=== PATIENT | female | born 1980 | race Caucasian/White ===

== ENCOUNTER 2025-09-08 08:15 | Emergency (ER) | payer BC, SELFPAY ==
--- OUTSIDE RECORDS SUMMARY | 2025-09-08 08:17 | XMS_ITS | Encounter Summary ---
Author Organization [facility] Health Address [address] [place] [address] Care Team Providers Care Banker Mason Name Role Phone JohnnicoleDerrick rodriguez APRN-COURT ABSTRACTOR Primary Care Pr ovider Reason for Visit * Reason Onset Date Comments Menstrual Problem 06/10/2022 Encounter Details Date Type Department Care Team (Late st Contact Info) Description 06/10/2022 Telephone [facility] [address] [place], [place] [phone] Laure Bay MD [address] [place] [address] Menstrual Problem Social History Tobacco Use Types Packs/Day Years Used Date Smoking Tobacco: Never Smokeless Tobacco: Never Alcohol Use Standard Drinks/Week Comments No 0 (1 standard drink = 0.6 oz pur e alcohol) Comments No Sex and Gender Information Value Date Recorded Sex Assigned at Not on file Legal Sex Female 7:34 AM CHIEF INTERNAL AUDITOR Gender Identity Female Sexual Orientation Not on file documented as of this encounter Functional Status * Is person deaf or have serious hearing difficulty? Answer Date of Assessment Author No 09/05/2014 1:00 PM Monica Hirsch RN * Is person blind or have serious difficulty seeing? Answer Date of Assessment Author No 09/05/2014 1:00 PM Moncia Hirsch RN * Does person have serious difficulty walking/climbing stairs? Answer Date of Assessment Author No 09/05/2014 1:00 PM Monica Hirsch RN * Does person have difficulty dressing/bathing? Answer Date of Assessment Author No 09/05/2014 1:00 PM Moniac Hircsh RN * Does person have difficulty doing errands alone? Answer Date of Assessment Author No 09/05/2014 1:00 PM Monica Hirsch RN documented as of this encounter Mental Status * Does person have difficulty concentrating/remembering/making decisions? Answer Entry Date Author No 09/05/2014 1:00 PM Monica Hirsch RN documented in this encounter Miscellaneous Notes * Telephone Encounter - Laure Bay MD - 06/10/2022 11:57 AM CDT agree * Telephone Encounter - Darleen Payton RN - 06/10/2022 9:14 AM CDT RN returned call to pt. Per pt she would like to schedule an appt for irregular cycles. Pt has light cycle every month but concerned with with cramps, soreness before cycle, hairloss, skin is hot. Feels like symptoms are increasing. Pt wants an appt Pt scheduled for 07/02/2022 11:30 AM Laure Bay MD Pt accepts appt * Telephone Encounter - Linda Phillips - 06/10/2022 8:38 AM CDT Pt called in with concerns surrounding her menstrual cycles becoming irregular. Pt also expresses she is having hormonal changes. Pt can be reached at [phone]. documented in this encounter Plan of Treatment Upcoming Encounters Date Type Department Care Team (Late st Contact Info) Description 12/03/2025 10:00 AM CHIEF INTERNAL AUDITOR Office Visit [facility] - [facility] [address], [address] [place] [phone] Prudence Em APRN-KEITH [address] [facility] [place] [phone] 07/31/2026 4:00 PM CDT Office Visit [facility] - WELDING MACHINE OPERATOR PLASMA ARC [address] [place] [address] Vandana Knight MD [address] [facility] [address] [place] [address] documented as of this encounter Visit Diagnoses Not on filedocumented in this encounter Care Teams Banker Mason Relationship Specialty Start Date End Date Derrick Moncada APRN-COURT ABSTRACTOR [address] [place] [address] PCP - General Nurse Practitioner 08/15/25 documented as of this encounter
--- OUTSIDE RECORDS SUMMARY | 2025-09-08 08:17 | XMS_ITS | Clinical Summary ---
Author Organization [facility] Address [address] [place] [phone] Phone Care Team Providers Care Director Part Name Role Phone Ariella Moncada NP Primary Care Provide r Allergies Active Allergy Reactions Criticality Noted Date Comments Sulfamethoxazole-Trimethoprim Medications HYDROcodone-acet aminophen (NORCO) 5-325 mg per tabletIndication s:Pain Take 1 tablet by mouth every 6 (six) hours as needed for pain 12 tablet 06/03/2025 Active cyclobenzaprine (FLEXERIL) 10 mg tablet Take 1 tablet (10 mg total) by mouth every 8 (eight) hours as needed for muscle spasms 12 tablet 06/03/2025 Active Active Problems Problem Noted Date Diagnosed Date Chronic interstitial cystitis 01/29/2011 Surgical History Surgery Date Site/Laterality Comments APPENDECTOMY Appendectomy - (Added by TW Conv) Medical History Medical History Date Comments Scoliosis Scoliosis - (Add ed by TW Conv) Social History Tobacco Use Types Packs/Day Years Used Date Smoking Tobacco: Never Personal Safety Answer Date Recorded Have you ever been in or are you currently in a harmful physical or emotional relationship or is someone making you feel afraid or unsafe? Denies 06/03/2025 Comments Unknown Sex and Gender Information Value Date Recorded Sex Assigned at Not on file Legal Sex Female 9:18 AM TRIM OPERATOR Gender Identity Not on file Sexual Orientation Not on file Last Filed Vital Signs Vital Sign Reading Time Taken Comments Blood Pressure 102/54 06/03/2025 4:40 PM CDT Pulse 46 06/03/2025 4:40 PM CDT Temperature 36.4 C (97.6 F) 06/03/2025 11:41 AM CDT Respiratory Rate 24 06/03/2025 11:41 AM CDT Oxygen Saturation 100% 06/03/2025 4:40 PM CDT Inhaled Oxygen Concentration - - Weight 50.8 kg (112 lb) 06/03/2025 11:41 AM CDT Height 162.6 cm (5' 4) 06/03/2025 11:41 AM CDT Body Mass Index 19.22 06/03/2025 11:41 AM CDT Plan of Treatment Health Maintenance Due Date Last Done Comments Cervical Cancer Screening 1978 Colon Cancer Screening-Colonoscopy 1978 Depression Screening 1978 Hepatitis C Screening 1978 Hepatitis B Screening 1996 Regular Well Visit/Exam 18-64 1996 Breast Cancer Screening-Mammogram 03/31/2024 03/31/2023, 03/31/2023 Covid-19 Vaccine ( season) 2025 09/18/2021, 12/17/2020, 11/30/2020 Influenza Vaccine (#1) 2025 , 08/03/2023, 06/24/2022, Additional history exists DTaP/Tdap/Td Vaccine (2 - Td or Tdap) 08/03/2034 08/03/2024, 07/04/2011 Pneumococcal vaccine <65 Aged Out No longer eligible based on patient's age to complete this topic Insurance [employer] CHOICE ANTHEM ACCESS CHOICE Care Teams Director Part Relationship Specialty Start Date End Date Ariella Moncada NP [address] [place] [address] PCP - General Emergency Medicine 06/03/25
--- OUTSIDE RECORDS SUMMARY | 2025-09-08 08:17 | XMS_ITS | Clinical Summary ---
Author Organization [facility] Address [address] [address] Phone Care Team Providers Care Director Name Role Phone David Yanes MD Unavailable [phone] Sanna Moncada APRN, PATIENT ACCESS COORDINATOR Primary Care P rovider Allergies Active Allergy Reactions Criticality Noted Date Comments Sulfamethoxazole-Trim ethoprim Unknown Citric Acid Unknown 09/18/2019 Per pt can not tolerate citric acid or acidic foods Lidocaine Other (see Comments) 09/05/2014 Burning when It Was Instilled Into Her bladder Medications Isopropyl Alcohol (Alcohol Wipes) 70 % MiscIndications :Vitamin B12 deficiency Use with b12 20 Each 4 Active Zolmitriptan 5 MG TABLET DISPERSIBLEIndi cations:Migrain e without status migrainosus, not intractable, unspecified migraine type PLACE 1 TABLET ON THE TONGUE NEEDED FOR MIGRAINE 18 Tablet 5 5 Active Trulance 3 MG Tablet Take 1 Tablet by mouth nightly. 90 Tablet 1 5 Active testosterone (TESTOPEL) 25 MG PELLET Testosterone Active Syringe/Needle, Disp, (SYRINGE 3CC/25GX1) 25G X 1 3 ML MiscIndications :Vitamin B12 deficiency Use with B12 16 Each 5 Active cyanocobalamin (VITAMIN B-12) 1000 MCG/ML SolutionIndicat ions:Vitamin B12 deficiency 1 mL once a week for 42 days, THEN 1 mL every 30 days for 322 days. 16 mL 5 08/02/20 26 Active Active Problems Problem Noted Date Diagnosed Date Irritable bowel syndrome with constipation 08/25 Migraine without status migrainosus, not intract able 10/19/2017 Chronic interstitial cystitis Scoliosis B12 deficiency Resolved Problems Problem Noted Date Diagnosed Date Resolved Date Nausea in adult 08/24/2021 06/24/2022 Benign paroxysmal positional vertigo 08/24/2021 06/24/2022 COVID-19 virus infection 07/07/2021 Hypotension 08/02/2018 06/24/2022 Dizziness 06/15/2017 08/03/2025 Kidney stones 06/24/2022 GERD (gastroesophageal reflux disease) 10/19/2017 Mental retardation 6 Overview (08/16/2015): Mild to Moderate, Echo 11/15 MR (congenital mitral regurgitation) 10/12/2023 Encounters Date Type Department Care Team Description 08/20/2025 Patient Outreach [facility] [place] [address] [place] [address] Sanna Moncada APRN, PATIENT ACCESS COORDINATOR 08/06/2025 Telephone [facility] [address] [place] [phone] Sanna Moncada APRN, PATIENT ACCESS COORDINATOR Form Completion 08/04/2025 [facility]ation [facility] [address] [place] [phone] Sanna Moncada APRN, PATIENT ACCESS COORDINATOR 08/03/2025 8:00 AM CDT [facility] [address] [place] [phone] Sanna Moncada APRN, PATIENT ACCESS COORDINATOR Preventative health care (Adult) (Primary Dx); Vitamin B12 deficiency; Encounter for immunization; Chronic interstitial cystitis; Acute pain of right knee; Pityriasis rosea Discharge Disposition: Discharged to home or Selfcare 08/01/2025 Travel 07/16/2025 Telephone [facility] [address] [place] [phone] Sanna Moncada APRN, KEITH Labs Only 07/09/2025 Results Follow-Up [facility] [address] [place] [address] Maria A Bowers APRN, KEITH POCT UA AUTOMATED W/O MICRO, CULTURE, URINE 07/06/2025 3:50 PM CDT Urgent Care Visit [facility] [address] [place] [phone] Maria A Bowers APRN, KEITH Dysuria (Primary Dx) Discharge Disposition: Discharged to home or Selfcare 07/06/2025 Travel 06/23/2025 Results Follow-Up [facility] [address] [place] [phone] Mesha Fontenot APRN, KEITH POCT UA AUTOMATED W/O MICRO, CULTURE, URINE 06/21/2025 8:05 AM CDT Urgent Care Visit [facility] [address] [place] [phone] Maria A Bowers APRN, CNP Dysuria (Primary Dx) Discharge Disposition: Discharged to home or Selfcare 06/21/2025 Travel from Last 3 Months Immunizations Immunization Administration Dates Next Due Covid-19, Mrna, Lnp-s, Pf, 3 0 Mcg/0.3 Ml Dose ([employer]) 12/17/2020,11/30/2020 Influenza Vaccine, Quadrivalent, PF 07/06,06/24/2022,09/09/2021,2019,09/07/2019,07/20/2018 Influenza,Split Virus,Trivalent,Injectable,PF 08/03/2025,08/03/2024 TB Skin Test 11/28/2019 TD VACCINE 07/04/2011 TDAP Vaccine 08/03/2024 Td (Adult) 07/04/2011 Family History Medical History Relation Name Comments Diabetes Father Cancer Maternal Grandfather pancrea tic Migraines Mother Cancer Paternal Grandmother breast Relation Name Status Comments Father Alive Maternal Grandfather Mother Alive Paternal Grandmother Social History Tobacco Use Types Packs/Day Years Used Date Smoking Tobacco: Never Smokeless Tobacco: Never Tobacco Cessation:Counseling Given: No Alcohol Use Standard Drinks/Week Comments Never 0 (1 standard drink = 0.6 oz pur e alcohol) PHQ-2 Answer Date Recorded Total Score - Questions 1-9 0 07/06 Social Connection and Isolation Panel Answer Date Recorded In a typical week, how many times do you talk on the phone with family, friends, or neighbors? More than three times a week 08/01/2025 How often do you get togethe r with friends or relatives? Twice a week 08/01/2025 How often do you attend chur ch or episcopal services? More than 4 times per year 08/01/2025 Do you belong to any clubs o r organizations such as scientology groups, unions, fraternal or athletic groups, or school groups? Yes 08/01/2025 How often do you attend meet ings of the clubs or organizations you belong to? More than 4 times per year 08/01/2025 Are you , , di vorced, , never , or living with a partner? 08/01/2025 AUDIT-C Answer Date Recorded Q1: How often do you have a drink containing alcohol? Never 08/01/2025 Q2: How many drinks containi ng alcohol do you have on a typical day when you are drinking? Patient does not drink Q3: How often do you have si x or more drinks on one occasion? Never 08/01/2025 Overall Financial Resource Strain (CARDIA) Answe r Date Recorded How hard is it for you to pa y for the very basics like food, housing, medical care, and heating? Not hard at all 08/01/2025 [facility] - Occupational Stress Questionnaire Answer Date Recorded Do you feel stress - tense, restless, nervous, or anxious, or unable to sleep at night because your mind is troubled all the time - these days? To some extent 08/01/2025 Exercise Vital Sign Answer Date Recorde d On average, how many days pe r week do you engage in moderate to strenuous exercise (like a brisk walk)? 6 days 08/01/2025 On average, how many minutes do you engage in exercise at this level? 40 min 08/01/2025 Hunger Vital Sign Answer Date Recorded Within the past 12 months, y ou worried that your food would run out before you got the money to buy more. Never true 08/01/20 25 Within the past 12 months, t he food you bought just didn't last and you didn't have money to get more. Never true 08/01/2025 PRAPARE - Transportation Answer Date Re corded In the past 12 months, has l ack of transportation kept you from medical appointments or from getting medications? No 07/05 In the past 12 months, has l ack of transportation kept you from meetings, work, or from getting things needed for daily living? No 08/01/2025 Housing Stability Vital Sign Answer Nixon e Recorded In the last 12 months, was t here a time when you were not able to pay the mortgage or rent on time? No 08/01/2025 In the past 12 months, how m any times have you moved where you were living? 0 08/01/2025 At any time in the past 12 m [facility], were you homeless or living in a penitentiary (including now)? No 08/01/2025 [facility] Utilities Answer Date Recorded In the past 12 months has th e [employer], gas, oil, or water [employer] threatened to shut off services in your home? No 08/01/2025 Education Answer Date Recorded What is the highest level of school you have completed or the highest degree you have received? Bachelor's degree (e.g., BA, AB, BS) 08/21/2022 Sexually Active Control Partners Comments Yes Oral Contraceptive Male Comments No Sex and Gender Information Value Date Recorded Sex Assigned at Not on file Legal Sex Female 11:41 PM CDT Gender Identity Not on file Sexual Orientation Not on file Last Filed Vital Signs Vital Sign Reading Time Taken Comments Blood Pressure 98/64 08/03/2025 8:12 AM CDT Pulse 66 08/03/2025 8:12 AM CDT Temperature 36.3 C (97.4 F) 08/03/2025 8:12 AM CDT Respiratory Rate 18 08/03/2025 8:12 AM CDT Oxygen Saturation 98% 08/03/2025 8:12 AM CDT Inhaled Oxygen Concentration - - Weight 51.7 kg (114 lb) 08/03/2025 8:12 AM CDT Height 160 cm (5' 3) 08/03/2025 8:12 AM CDT Body Mass Index 20.19 08/03/2025 8:12 AM CDT Plan of Treatment Upcoming Encounters Date Type Department Care Team (Late st Contact Info) Description 08/09/2026 8:00 AM INFORMATION SYSTEMS SECURITY DEVELOPER Office Visit [facility] - [address] [place] [phone] Sanna Moncada APRN, PATIENT ACCESS COORDINATOR [address] [place] [address] Health Maintenance Due Date Last Done Comments Cologuard 2023 Immunochemical Fecal Occult Blood 2023 Mammogram 04/21/2024 04/21/2023, 03/05, 03/31/2023 SARS-COV-2 Immunization ( season) 2025 09/18/2021, 12/17/2020, 11/30/2020 HPV/Cotest 06/28/2027 06/28/2022 Cervical Cancer Screening (CCS) 07/26/2030 Pap Smear 07/26/2030 07/26/2025, 10/04, 10/08/2016 Colonoscopy 09/06/2033 09/06/2023, 09/06/2023 Colorectal Cancer Screening 09/06/2033 Td Immunization Every 10 Years (Adults With 1 Tdap) 08/03/2034 08/03/2024, 07/04/2011, 07/04/2011 Respiratory Syncytial Virus (RSV) Immunization (Adult) (1 - 1-dose 75+ series) 2053 Discussion re Starting/Frequency of Mammograms Completed 04/21/2023, 03/31/2023, 11/24/2022 Hepatitis C Virus (HCV) Screening Completed 07/27/2024 TdaP Immunization Discontinued 08/03/2024 Influenza Immunization Completed , 08/03/2024, 08/03/2023, Additional history exists Hepatitis B Immunization Discontinued Human Papillomavirus (HPV) Immunization Aged Out No longer eligible based on patient's age to complete this topic Meningococcal Immunization (ACWY) Aged Out No longer eligible based on patient's age to complete this topic Pneumococcal Immunization Combined Aged Out No longer eligible based on patient's age to complete this topic Rotavirus Immunization Aged Out No lo nger eligible based on patient's age to complete this topic Procedures Procedure Name Priority Date/Time Associated Diagnosis Comments EXTERNAL PHYSICAL THERAPY REFERRAL Less Than 1 week 08/20/2025 12:00 AM INFORMATION SYSTEMS SECURITY DEVELOPER LIPID PANEL 07/19/2025 12:00 AM CDT FOLIC ACID (FOLATE) 07/19/2025 1 2:00 AM CDT FOLIC ACID (FOLATE) 07/19/2025 1 2:00 AM CDT VITAMIN B12 07/19/2025 12:00 AM CDT COMPLETE BLOOD COUNT (CBC) WITH DIFF 07/19/2025 12:00 AM CDT THYROID STIMULATING HORMONE (TSH) 07/19/2025 12:00 AM CDT CMP (COMPREHENSIVE METABOLIC PANEL) 07/19/2025 12:00 AM CDT CULTURE, URINE Today 07/06/2025 5:34 PM CDT Dysuria POCT UA AUTOMATED W/O MICRO Routine 07/06/2025 3:52 PM CDT Dysuria CULTURE, URINE Routine 06/21/2025 8:23 AM CDT Dysuria POCT UA AUTOMATED W/O MICRO Routine 06/21/2025 8:06 AM CDT Dysuria HEPATITIS C ANTIBODY Routine 07/27/2024 8:07 AM CDT Preventative health care (Adult) GI IMAGING - COLONOSCOPY Routine 09/06/2023 10:00 AM INFORMATION SYSTEMS SECURITY DEVELOPER PATHOLOGY CYTOLOGY [employer] Routine 10/08/2016 from Last 3 Months or Most Recently Relevant to Health Maintenance Results * EXTERNAL PHYSICAL THERAPY REFERRAL (08/20/2025 12:00 AM INFORMATION SYSTEMS SECURITY DEVELOPER) 08/20/2025 Sanna Moncada APRN, CNP OUTPT REFERRALS EXT/INT Final Result Performing Organization Address [place]/[facility] de Phone Number SCAN * VITAMIN B12 (07/19/2025 12:00 AM CDT) 07/19/2025 us Provider Scan CHEMISTRY ORDERABLES Final Resul t Performing Organization Address [facility] de Phone Number SCAN * THYROID STIMULATING HORMONE (TSH) (07/19/2025 12:00 AM CDT) 07/19/2025 Provider Scan CHEMISTRY ORDERABLES Final Resul t Performing Organization Address [facility] de Phone Number SCAN * LIPID PANEL (07/19/2025 12:00 AM CDT) CHOLESTEROL 157 SCAN HDL CHOLESTEROL 62 SCAN LDL 83 SCAN 07/19/2025 us Provider Scan CHEMISTRY ORDERABLES Final Resul t Performing Organization Address [facility] de Phone Number SCAN * FOLIC ACID (FOLATE) (07/19/2025 12:00 AM CDT) Only the most recent of2 resultswithin the time period is included. 07/19/2025 us Provider Scan CHEMISTRY ORDERABLES Final Resul t Performing Organization Address [facility] de Phone Number SCAN * CMP (COMPREHENSIVE METABOLIC PANEL) (07/19/2025 12:00 AM CDT) 07/19/2025 us Provider Scan CHEMISTRY ORDERABLES Final Resul t Performing Organization Address [place] Co de Phone Number SCAN * COMPLETE BLOOD COUNT (CBC) WITH DIFF (07/19/2025 12:00 AM CDT) 07/19/2025 us Provider Scan HEMATOLOGY ORDERABLES Final Resu lt Performing Organization Address [facility] de Phone Number SCAN * CULTURE, URINE (07/06/2025 5:34 PM CDT) Only the most recent of2 resultswithin the time period is included. CULTURE RESULTS COAGULASE-NEGATIVE STAPHYLOCOCCUS, NOT STAPHYLOCOCCUS SAPROPHYTICUS 07/08/2025 6:12 PM CDT [facility] Comment:SENSITIVITY NOT PERF ORMED CULTURE RESULTS Also mixed growth of distal urethral contaminants 07/08/2025 6:12 PM CDT [facility] Culture URINE SPECIMEN OBTAINED BY CLEAN CATCH PROCEDURE / Unknown Non-Phlebotomy Collection / Unknown 07/06/2025 5:34 PM CDT 07/06/2025 5:34 PM CDT Maria A Bowers BUMPER STRAIGHTENER, PATIENT ACCESS COORDINATOR MICROBIOLOGY - GEN ERAL ORDERABLES Final Result Performing Organization Address [facility] Co de Phone Number [facility] [address] [place] [address], [place] * POCT UA AUTOMATED W/O MICRO (07/06/2025 3:52 PM CDT) Only the most recent of2 resultswithin the time period is included. POC UA SPECIFIC GRAVITY 1.015 URINE PH 6.0 5.0 - 9.0 POC URINE LEUKOCYTES Negative Negative Escobar/uL POC URINE NITRITE Negative Negative POC URINE PROTEIN Negative Negative mg/dL POC URINE GLUCOSE Negative Negative, Norm mg/dL POC URINE KETONE Negative Negative mg/dL POC URINE UROBILINOGEN Norm Norm, 0.2 E.U./dL (mg/dL), 1 E.U./dL (mg/dL) POC URINE BILIRUBIN Negative Negative mg/dL POC URINE BLOOD INSTRUMENT Negative Negative Yosi/uL POC URINE COLOR Yellow POC URINE CLARITY Clear Urine 07/06/2025 3:52 PM CDT Maria A Bowers APRN, CNP POINT OF CARE TEST ING (MANUAL) Final Result * HEPATITIS C ANTIBODY (07/27/2024 8:07 AM CDT) hepatitis C antibody 0.08 <1 S/CO 07/27/2024 10:03 PM CDT [facility] Comment: Signal/Cutoff ratio < 0.79 is Nondetected Signal/Cutoff ratio 0.80-0.99 is Grayzone Signal/Cutoff ratio > 0.99 is Detected Supplemental assays are recommended if signal/cutoff ratio is >/=1.00. Signal/cutoff ratio result >/= 5.00 is 97% predictive of positivity for recombinant immunoblot assay (RIBA) and will be reported to the [place] Department of Public Health as required. Blood Venipuncture / Unknown 07/27/2024 8:07 AM CDT 07/27/2024 8:07 AM CDT Sanna Moncada APRN, CNP CHEMISTRY ORDER BERNY Final Result [facility] [address] [place] [address], * GI IMAGING - COLONOSCOPY (09/06/2023 10:00 AM INFORMATION SYSTEMS SECURITY DEVELOPER) Shane Steele MD IMG DIAGNOSTIC ORDERABLES Final Result * PATHOLOGY CYTOLOGY R[employer] (10/08/2016) Specimen of unknown material (specimen) Apoorva Carter MD PATHOLOGY/CYTOLOGY ORD ERABLES Final Result from Last 3 Months or Most Recently Relevant to Health Maintenance Insurance [facility] Care Teams Director Relationship Specialty Start Date End Date Sanna Moncada, BUMPER STRAIGHTENER, PATIENT ACCESS COORDINATOR [address] [place] [address] PCP - General Advanced Practice Nurse 11/24/22 David Yanes MD [address] [place] [address] Medical Front Desk Specialist Obstetrics & Gynecology 05/07/20
--- OUTSIDE RECORDS SUMMARY | 2025-09-08 08:17 | XMS_ITS | Encounter Summary ---
Author Organization [facility] Address [address] [place] [address] Phone Care Team Providers Care Traffic Division Commanding Officer Name Role Phone Irlanda Maharaj MD Primary Care Provider [phone] David Yanes MD Unavailable Sanna Moncada APRN, FINDING FASTENER Primary Care P rovider Reason for Visit * Reason Comments Medication Refill Encounter Details Date Type Department Care Team (Late st Contact Info) Description 09/01/2022 Refill [facility] - Primary Care - [place] [address] [place] [address] Irlanda Maharaj MD [address] [place] [address] Medication Refill Social History Tobacco Use Types Packs/Day Years Used Date Smoking Tobacco: Never Smokeless Tobacco: Never Alcohol Use Standard Drinks/Week Comments No 0 (1 standard drink = 0.6 oz pur e alcohol) PHQ-2 Answer Date Recorded Total Score - Questions 1-9 0 02/02 Education Answer Date Recorded What is the highest level of school you have completed or the highest degree you have received? Bachelor's degree (e.g., BA, AB, BS) 08/21/2022 Sexually Active Control Partners Comments Yes Oral Contraceptive Comments No Sex and Gender Information Value Date Recorded Sex Assigned at Not on file Legal Sex Female 11:41 PM CDT Gender Identity Not on file Sexual Orientation Not on file COVID-19 Exposure Response Date Recorded In the last 10 days, have yo u been in contact with someone who was confirmed or suspected to have Coronavirus/COVID-19? No / Unsure 08/23/2022 8:19 AM ADMINISTRATIVE SALES ASSISTANT documented as of this encounter Miscellaneous Notes * Telephone Encounter - Arcelia Sykes RN - 09/01/2022 9:43 AM CST Medication failed the protocol, provider to review and approve the medication order if appropriate. Requested Prescriptions Pending Prescriptions Disp Refills cyanocobalamin 1000 MCG Tablet [Pharmacy Med Name: VITAMIN B-12 1000MCG TABLETS] 90 Tablet 1 Sig: TAKE 1 TABLET BY MOUTH DAILY Not Delegated - Off Protocol Failed - 09/01/2022 3:11 AM Failed - This refill cannot be delegated Passed - Visit with relevant provider in past 12 months or upcoming 90 days Recent Visits Date Type Provider Dept 08/21/22 Office Visit Sanna Moncada APRN, KE[facility] 06/24/22 Office Visit Sanna Moncada APRN, CNP [facility] 03/16/22 Office Visit Irlanda Maharaj MD [facility] Showing recent visits within past 365 days and meeting all other requirements Future Appointments No visits were found meeting these conditions. Showing future appointments within next 90 days and meeting all other requirements NISTRATIVE SALES ASSISTANT documented in this encounter Plan of Treatment Upcoming Encounters Date Type Department Care Team (Late st Contact Info) Description 08/09/2026 8:00 AM ADMINISTRATIVE SALES ASSISTANT Office Visit [facility] - Primary Care - [place] [address] [place] [id number] Sanna Moncada APRN, FINDING FASTENER [address] [place] [address] documented as of this encounter Visit Diagnoses Not on filedocumented in this encounter Additional Health Concerns Infection Onset Date Last Indicated Resolved Time COVID - 19 06/26/2023 06/26/2023 06/26/2023 8:26 AM CDT COVID - 19 11/20/2023 11/20/2023 11/30/2023 12:1 6 AM ADMINISTRATIVE SALES ASSISTANT Respiratory Rule-Out 11/20/2023 11/20/2023 024 8:43 AM ADMINISTRATIVE SALES ASSISTANT Assessment Noted Time PHQ-9 Depression Total Score: 0 02/28/20 21 8:00 AM CDT documented as of this encounter Care Teams Traffic Division Commanding Officer Relationship Specialty Start Date End Date Irlanda Maharaj MD PCP - General Family Medicine 08/15/15 11/23/22 Sanna Moncada, MEDIA LAW FACULTY MEMBER, FINDING FASTENER [address] [place] [address] PCP - General Advanced Practice Nurse 11/24/22 David Yanes MD [address] [place] [address] Project Admin Obstetrics & Gynecology 05/07/20 documented as of this encounter
--- OUTSIDE RECORDS SUMMARY | 2025-09-08 08:17 | XMS_ITS | Encounter Summary ---
Author Organization [facility] Address [address] [place] [address] Care Team Providers Care Zigzag Appliquer Name Role Phone Irlanda Maharaj MD Unavailable [phone] [facility] Primary Care Pr ovider Reason for Visit * Reason Onset Date Comments UTI 02/10/2018 Encounter Details Date Type Department Care Team (Late st Contact Info) Description 02/10/2018 Telephone [facility] [address] [place], [place] [id number] David Yanes MD [address] [place], [place] [id number] UTI Social History Tobacco Use Types Packs/Day Years Used Date Smoking Tobacco: Never Smokeless Tobacco: Never Alcohol Use Standard Drinks/Week Comments No 0 (1 standard drink = 0.6 oz pur e alcohol) Comments No Sex and Gender Information Value Date Recorded Sex Assigned at Not on file Legal Sex Female 7:34 AM MANAGER EMERGENCY DEPARTMENT Gender Identity Female Sexual Orientation Not on file documented as of this encounter Functional Status * Is person deaf or have serious hearing difficulty? Answer Date of Assessment Author No 09/05/2014 1:00 PM Monica Hirsch RN * Is person blind or have serious difficulty seeing? Answer Date of Assessment Author No 09/05/2014 1:00 PM Monica Hirshc RN * Does person have serious difficulty walking/climbing stairs? Answer Date of Assessment Author No 09/05/2014 1:00 PM Monica Hirsch RN * Does person have difficulty dressing/bathing? Answer Date of Assessment Author No 09/05/2014 1:00 PM Monica Hirsch RN * Does person have difficulty doing errands alone? Answer Date of Assessment Author No 09/05/2014 1:00 PM Monica Hirsch RN documented as of this encounter Mental Status * Does person have difficulty concentrating/remembering/making decisions? Answer Entry Date Author No 09/05/2014 1:00 PM Monica Hirsch RN documented in this encounter Miscellaneous Notes * Telephone Encounter - Adams Zelaya RN - 02/14/2018 9:52 AM CDT Ur Cx results: not a UTI. LM on a re: above msg. CB office if still having problems. * Telephone Encounter - David Yanes MD - 02/10/2018 3:13 PM CDT Would recommend waiting for urine culture. * Telephone Encounter - Adams Zelaya RN - 02/10/2018 12:30 PM CDT Sanna used home Test strip - leukocytes and nitrates turned a color. 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 Admits to eating Blueberries this am and wonders if she caused her IC to flare vs UTI. C/o : new onset burning when she voids - different burning than she normally gets. Twisting or clamping Pain at the urethra. Denies urgency. PLAN: will go to [facility] today and call medical exhange on Wednesday if symptoms the same or worse. Took AZO an hour ago so hasn't gotten much if any relief yet. Will continue to take 3x/ day. QUESTION: SHOULD SHE come sooner for instillations? * Telephone Encounter - BenedictLianna - 02/10/2018 9:59 AM CDT Pt called stating that she took a home test for an UTI. She stated that she is requesting an urine culture, and can not wait til Wednesday because she has a large event this . Call back# [phone] documented in this encounter Plan of Treatment Upcoming Encounters Date Type Department Care Team (Late st Contact Info) Description 12/03/2025 10:00 AM MANAGER EMERGENCY DEPARTMENT Office Visit [facility] - Surgery [address], [facility] [address] [place] [phone] Prudence Em, DIRECT MARKETING MANAGER-NATURAL RESOURCES TECHNICIAN [address] [facility] [address] [place] [phone] 07/31/2026 4:00 PM CDT Office Visit [facility] - OIL INSPECTOR [address] [place] [address] [address] [place] [address] Vandana Knight MD [address] [facility] [address] [place] [address] documented as of this encounter Procedures Procedure Name Priority Date/Time Associated Diagnosis Comments CULTURE URINE Routine 02/10/2018 2:03 PM CDT Recurrent UTI documented in this encounter Results * CULTURE URINE (02/10/2018 2:03 PM CDT) Culture [facility] Comment: CULTURE, URINE, ROUTINE MICRO NUMBER: [id number] TEST STATUS: FINAL SPECIMEN SOURCE: URINE, CLEAN CATCH SPECIMEN QUALITY: ADEQUATE RESULT: Multiple organisms present, each less than 10,000 CFU/mL. These organisms, commonly found on external and internal genitalia, are considered to be colonizers. No further testing performed. Test Performed at: [facility] [address] [address] KAYY BALLARD MD Urine URINE SPECIMEN OBTAINED BY CLEAN CATCH PROCEDURE / Unknown 02/10/2018 2:03 PM CDT 02/10/2018 2:04 PM CDT David Yanes MD LAB - MICROBIOLOGY ORDERABLES F inal Result [address] [address] documented in this encounter Visit Diagnoses Diagnosis Recurrent UTI- Primary Urinary tract infection, site not specified documented in this encounter Care Teams Zigzag Appliquer Relationship Specialty Start Date End Date Irlanda Maharaj MD [address] [place] [address] PCP - Attributed[facility] [place] 10/04/20 02/17/22 Sanna Moncada APRN-NATURAL RESOURCES TECHNICIAN [address] [place] [address] PCP - General Nurse Practitioner 08/15/25 documented as of this encounter
--- OUTSIDE RECORDS SUMMARY | 2025-09-08 08:17 | XMS_ITS | Clinical Summary ---
Author Organization [facility] Address [address] [place] [address] Care Team Providers Care Pharmaceutical Plant Operator Name Role Phone Derrick Moncada APRN-HEEL CASER Primary Care Pr ovider Source Comments [facility],non-owned Affiliates and Associated Physician Practices is amultiple site organization consisting of ambulatory clinics and hospital sitesin [place], [place], [place] and [place]. This disclosure is being madepursuant to the Care Everywhere program and may not contain all information available regarding this patient. Last updated 18.[facility] Allergies Active Allergy Reactions Criticality Noted Date Comments Sulfamethoxazole W-Trimethoprim Urticaria High 09/03/2014 Hives Lidocaine Other Medium 09/05/2014 Irritant When It Was Instilled Into Her bladder Skin Adhesives Rash Medium 03/05/2023 Rash with bandaid Medications * Be aware that medications may not be up to date on this document. Alwaysverify current medications with the patient. ZOLMitriptan (ZOMIG) 5 MG tablet Take 1 (one) tablet by mouth daily as needed - may repeat one time for Migraine Maximum daily dose: 10 mg/24 hours TAKES /5 TAB Active heparin 1000 UNIT/ML 1,000 Units in 0.9% NaCl 0.9 % 1,000 mLIndications:In terstitial cystitis 5 mL by Irrigation route intra-OP multiple 1 Each 8 Active phenazopyridine (Pyridium) 100 MG tabletIndication s:Interstitial cystitis,Acute cystitis without hematuria Take 1 (one) tablet by mouth every 8 hours as needed for Pain 60 tablet 2 3 Active Additional Information Patient not taking.Reported on 07/26/2025 cyanocobalamin (Vitamin B-12) injection Inject 1,000 (one thousand) mcg into muscle every 30 days 4 Active Trulance 3 MG tablet Take 1 (one) tablet by mouth at bedtime 5 Active linaCLOtide (Linzess) 72 MCG capsuleIndicatio ns:Chronic Idiopathic Constipation Take 1 (one) capsule by mouth daily before breakfast Take on an empty stomach at least 30 minutes prior to first meal of the day. Reasons: Chronic Constipation of Unknown Cause 30 capsule 3 5 Active HYDROcodone-acet aminophen ([place]) 5-325 MG tabletIndication s:Acute Abdominal Pain Take 1 (one) tablet by mouth every 4 hours as needed for Pain Reasons: Acute Pain in the Abdominal Region 12 tablet 5 Active plecanatide (Trulance) 3 MG tablet Take 1 (one) tablet by mouth once daily 30 tablet 3 5 Active Additional Information Patient not taking.Reported on 07/26/2025 meloxicam (Mobic) 15 MG tablet 1 tablet Orally once a day for 30 days 5 Active cyclobenzaprine (Flexeril) 10 MG tablet Take 1 (one) tablet by mouth 5 Active terbinafine (LamISIL) 250 MG tablet Take 1 (one) tablet by mouth once daily 1 tablet Orally once daily for 7 days in a row, then stop. 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 Chronic interstitial cystitis 01/29/2011 Abnormal bleeding in menstrual cycle Encounters Date Type Department Care Team Description 08/28/2025 Telephone [facility] Breast [facility] [address] [place] [address] Chery Ramon RN High Risk Follow Up 08/15/2025 7:41 AM FINANCIAL DIRECTOR - 08/15/2025 11:59 PM FINANCIAL DIRECTOR Hospital Encounter [facility] - Outside Imaging Discharge Disposition: Home or Self Care 08/15/2025 7:17 AM FINANCIAL DIRECTOR - 08/15/2025 7:40 AM FINANCIAL DIRECTOR Hospital Encounter [facility] [address] [place] [address] Vandana Knight MD Discharge Disposition: Home or Self Care 08/15/2025 Telephone [facility] - DUST CONTROL ENGINEER [address] [place] [phone] Vandana Knight MD Results 08/13/2025 [facility] DUST CONTROL ENGINEER [address] [place] [phone] David Yanes MD Question; Refill Request 07/26/2025 4:00 PM CDT [facility] DUST CONTROL ENGINEER [address] [place] [address] Vandana Knight MD Well woman exam with routine gynecological exam (Primary Dx) 07/26/2025 Travel 07/16/2025 Orders Only [facility] - DUST CONTROL ENGINEER [address] [place] [phone] David Yanes MD Acute cystitis without hematuria 07/03/2025 Travel from Last 3 Months Immunizations Immunization Administration Dates Next Due Covid Pfizer primary monoval ent 12+ yr 0.3mL Purple cap 12/17/2020,11/30/2020 INFLUENZA VACCINE, QUADR. (F LUZONE; FLULAVAL; FLUARIX; AFLURIA QUADRIVALENT; 6MO+), 0.5 ML (IIV4) 08/14/2020,09/07/2019,07/20/2018 TD (AGE 7-ADULT) 07/04/2011 Family History Medical History Relation Name Comments None Known Brother Brain Tumor Father no growth and n o treatment None Known Maternal Aunt 1 None Known Maternal Grandfather None Known Maternal Grandmother None Known Maternal Uncle None Known Mother None Known Paternal Aunt 1 None Known Paternal Grandfather Cancer - Breast Paternal Grandmother None Known Sister 1 Relation Name Status Comments Brother Father Maternal Aunt 1 Maternal Aunt 2 Alive Maternal Grandfather Maternal Grandmother Maternal Uncle Mother Other autoimmune Alive Paternal Aunt 1 Paternal Aunt 2 Alive Paternal Grandfather Paternal Grandmother Sister 1 Sister 2 Alive Social History Tobacco Use Types Packs/Day Years Used Date Smoking Tobacco: Never Passive Smoke Exposure: Never Smokeless Tobacco: Never Tobacco Cessation:Counseling Given: No Alcohol Use Standard Drinks/Week Comments No 0 (1 standard drink = 0.6 oz pur e alcohol) PHQ-2 Answer Date Recorded Patient Health Questionnaire-2 Score 0 04/09/2025 Comments No Sex and Gender Information Value Date Recorded Sex Assigned at Not on file Legal Sex Female 7:34 AM FINANCIAL DIRECTOR Gender Identity Female Sexual Orientation Not on file Last Filed Vital Signs Vital Sign Reading Time Taken Comments Blood Pressure 110/70 07/26/2025 4:13 PM CDT Pulse 59 01/05/2025 2:01 PM CDT Temperature 36.6 C (97.9 F) 01/05/2025 1:39 PM CDT Respiratory Rate 12 01/05/2025 2:01 PM CDT Oxygen Saturation 100% 01/05/2025 2:01 PM CDT Inhaled Oxygen Concentration - - Weight 51.7 kg (114 lb) 08/15/2025 7:37 AM FINANCIAL DIRECTOR Height 162.6 cm (5' 4) 08/15/2025 7:37 AM FINANCIAL DIRECTOR Body Mass Index 19.57 08/15/2025 7:37 AM FINANCIAL DIRECTOR Plan of Treatment Upcoming Encounters Date Type Department Care Team (Late st Contact Info) Description 12/03/2025 10:00 AM FINANCIAL DIRECTOR Office Visit [facility] - Surgery [address], [address] [place] [phone] Prudence Em, DIRECTOR OF STUDENT FINANCIAL AID-HEEL CASER [address] [place] [phone] 07/31/2026 4:00 PM CDT Office Visit [facility] - DUST CONTROL ENGINEER [address] [place] [address] Vandana Knight MD [address] [place] [address] Health Maintenance Due Date Last Done Comments COLOGUARD (AGES 45-75) - COLON CA SCREENING 1978 COLON MONITORING 1978 COLONOSCOPY - COLON CA SCREENING 1978 CT COLONOGRAPHY - COLON CA SCREENING 1978 Colorectal Cancer Screening 1978 FIT - COLON CA SCREENING 1978 FLEX SIG - COLON CA SCREENING 1978 HIV SCREENING 1993 HEPATITIS C SCREENING 07/19/1996 HEPATITIS B VACCINE (1 of 3 - 19+ 3-dose series) 1997 DTAP/TDAP/TD VACCINES (2 - Td or Tdap) 07/04/2021 07/04/2011 COVID-19 VACCINE ( - 2024- season) 2025 09/18/2021, 12/17/2020, 11/30/2020 MAMMOGRAM 08/15/2027 08/15/2025, 03/31/2023 ZOSTER VACCINE (1 of 2) 2028 LIPID TESTING 07/19/2030 07/19/2025, 07/05, 07/02/2022, Additional history exists PAP with HPV 07/26/2030 07/26/2025, 10/17/2018 DEPRESSION SCREENING Completed 04/10/2025, 07/04/20 24 INFLUENZA VACCINE Completed 08/03/2025, , 08/03/2023, Additional history exists HIB VACCINE Aged Out No longer eligi ble based on patient's age to complete this topic HPV VACCINE Aged Out No longer eligi ble based on patient's age to complete this topic MENINGOCOCCAL (Group B) VACCINE SHARED DECISION-MAKING Aged Out No longer eligible based on patient's age to complete this topic MENINGOCOCCAL GROUPS A/C/Y/W VACCINE Aged Out No longer eligible based on patient's age to complete this topic PNEUMOCOCCAL VACCINE Aged Out No long er eligible based on patient's age to complete this topic Goals Goal Patient Goal Type Associated Problems Recent Progress Patient-Stated? Author Medication Management General Hilda Gonzalez RN Note: Expected end date: Ongoing Interventions: Take all medications as prescribed Let your doctor know right away about any changes in your medications Make sure to request a refill of your medication at least one week prior to your last dose Procedures Procedure Name Priority Date/Time Associated Diagnosis Comments MAMMO BILAT SCREENING W PANCHITO Routine 08/15/2025 7:38 AM FINANCIAL DIRECTOR Well woman exam with routine gynecological exam PAP IMAGE-GUIDED W HPV Routine 07/26/2025 4:35 PM CDT Well woman exam with routine gynecological exam HPV PANEL Routine 07/26/2025 4:35 PM CDT Well woman exam with routine gynecological exam CULTURE URINE Routine 07/17/2025 8:41 AM CDT Acute cystitis without hematuria from Last 3 Months Results * Mammo Bilat Screening W Panchito (08/15/2025 7:38 AM FINANCIAL DIRECTOR) Anatomical Region Laterality Modality Breast Bilateral Mammography 08/15/2025 9:05 AM FINANCIAL DIRECTOR Impressions 08/15/2025 9:12 AM FINANCIAL DIRECTOR IMPRESSION: 1.Annual screening mammography is recommended. 2.Based upon the information provided by the patient, she has an elevated lifetime risk for developing breast cancer and meets criteria for supplemental screening with annual breast MRI. Her calculated lifetime risk using Tyrer-Cuzick lifetime risk by density is greater than 20%. Consider referral to the [facility] for formal risk assessment and high risk clinical surveillance. OVERALL FINAL ASSESSMENT: BI-RADS Category 1: Negative. > Interpreting Provider: Celso Pérez MD on 08/15/2025 9:12 AM Narrative 08/15/2025 9:12 AM FINANCIAL DIRECTOR EXAMINATION: BILATERAL DIGITAL SCREENING MAMMOGRAM AND BILATERAL BREAST TOMOSYNTHESIS HISTORY: Screening. COMPARISON: Serial examinations dating back to October 26, 2019. TECHNIQUE: BILATERAL digital breast tomosynthesis (DBT) and synthetic 2D digital mammogram images were obtained (bilateral craniocaudal and mediolateral oblique projections) including computer aided detection (CAD.) BREAST PARENCHYMAL COMPOSITION:Category D: The breasts are extremely dense which lowers the sensitivity of mammography. MAMMOGRAM FINDINGS: There is no suspicious finding in either breast. us Vandana Knight MD MAMMO ORDERABLES Final Res ult * PAP IMAGE-GUIDED W HPV (07/26/2025 4:35 PM CDT) Case Report Gynecologic Cytology Report Case: [id number] Authorizing Provider: Vandana Knight MD Collected: 07/26/2025 04:35 PM Ordering Location: [facility] - Received: 07/26/2025 04:35 PM DUST CONTROL ENGINEER First Screen: [place] eTna CT(ASCP) Specimen: THINPREP - IMAGE GUIDED, Cervix/Endocervix 07/30/2025 9:20 AM CDT [facility] LMP 07/21/25 07/30/2025 9:20 AM CDT [facility] Menstrual Status None Applicable 9:20 AM CDT [facility] Specimen Adequacy Satisfactory for evaluation, endocervical/trans formation zone component present. 07/30/2025 9:20 AM CDT [facility] Categorization Negative for intraepithelial lesion or malignancy. 07/30/2025 9:20 AM CDT [facility] Interpretation TRAVEL ADMINISTRATOR Negative for intraepithelial lesion or malignancy. 07/30/2025 9:20 AM CDT [facility] at 0920 CDT Pap Footnote The Pap Smear is a screening test. False positive and false negative results occur. Negative results do not preclude abnormalities, thus clinical correlation is required. This specimen was evaluated by the ThinPrep Imaging System along with an additional manual rescreening by a lean coach and/or pathologist. 07/30/2025 9:20 AM CDT [facility] Embedded Images 9:20 AM CDT [facility] Pathology/Cytolo gy MISCELLANEOUS SAMPLES / Unknown Collection / Unknown 07/26/2025 4:35 PM CDT 07/26/2025 4:35 PM CDT us Vandana Knight MD LAB - PATHOLOGY/CYTOLOGY O RDERABLES Final Result [facility] [address] [place] [address], [facility] [phone] * HPV PANEL (07/26/2025 4:35 PM CDT) High Risk HPV 16 NEGATIVE NEGATIVE 07/27/2025 9:[address] [facility] High Risk HPV 18 NEGATIVE NEGATIVE 07/27/2025 9:[address] [facility] High Risk HPV Other NEGATIVE NEGATIVE 07/27/2025 9:[address] [facility] Pathology/Cytolo gy MISCELLANEOUS SAMPLES / Unknown Collection / Unknown 07/26/2025 4:35 PM CDT 07/27/2025 11:[address] [facility] - 07/27/2025 9:46 PM CDT This test performed by Qualitative real-time Polymerase Chain Reaction (PCR). A negative result does not preclude the presence of HPV infection because results depend on adequate specimen collection, absence of inhibitors and sufficient DNA to be detected. Results should be interpreted in conjunction with other available laboratory and clinical data. This test amplifies DNA of HPV16, HPV18 and twelve other high risk types (31, 33, 35, 39, 45, 51, 52, 56, 58, 59, 66, 68) without differentiation. us Vandana Knight MD LAB - MICROBIOLOGY ORDERAB LES Final Result [facility] [address] [place] [address], [facility] [phone] * CULTURE URINE (07/17/2025 8:41 AM CDT) Culture [facility] Comment: CULTURE, URINE, ROUTINE Micro Number: [id number] Test Status: Final Specimen Source: Urine Specimen Quality: Adequate Result: No Growth REPORT COMMENT: FASTING:UNKNOWN Test Performed at: [facility] [address] [place] [address] KAYY BALLARD MD Urine URINE SPECIMEN OBTAINED BY CLEAN CATCH PROCEDURE / Unknown 07/17/2025 8:41 AM CDT 07/17/2025 8:42 AM CDT David Yanes MD LAB - MICROBIOLOGY ORDERABLES F inal Result [facility] [address] [place] [address] from Last 3 Months Insurance ANTHEM Advance Directives * Full Code (Latest Code Status on File) Date Activated Date Inactivated Comments 09/05/2014 3:01 PM 09/05/2014 8:29 PM Care Teams Pharmaceutical Plant Operator Relationship Specialty Start Date End Date Derrick Moncada APRN-KEITH [address] [place] [address] PCP - General Nurse Practitioner 08/15/25
--- OUTSIDE RECORDS SUMMARY | 2025-09-08 08:17 | XMS_ITS | Encounter Summary ---
Author Organization [facility] Address [address] [place] [address] Phone Care Team Providers Care Video Conference Specialist Name Role Phone Irlanda Maharaj MD Primary Care Provider David Yanes MD Unavailable Sanna Moncada APRN, CARROTING MACHINE OPERATOR Primary Care P rovider Reason for Visit * Reason Comments Medication Refill Encounter Details Date Type Department Care Team (Late st Contact Info) Description 10/08/2021 Refill [facility] [address] [place] [address] Irlanda Maharaj MD [address] [place] [address] Medication Refill Social History Tobacco Use Types Packs/Day Years Used Date Smoking Tobacco: Never Smokeless Tobacco: Never Alcohol Use Standard Drinks/Week Comments No 0 (1 standard drink = 0.6 oz pur e alcohol) PHQ-2 Answer Date Recorded Total Score - Questions 1-9 0 02/02 Sexually Active Control Partners Comments Yes Oral Contraceptive Comments No Sex and Gender Information Value Date Recorded Sex Assigned at Not on file Legal Sex Female 11:41 PM CDT Gender Identity Not on file Sexual Orientation Not on file COVID-19 Exposure Response Date Recorded In the last month, have you been in contact with someone who was confirmed or suspected to have Coronavirus / COVID-19? No / Unsure 09/09/2021 8:47 AM OUTSOLE TACKER documented as of this encounter Miscellaneous Notes * Telephone Encounter - Ruth Ann Martin RN - 10/08/2021 2:14 PM CST Medication failed the protocol, provider to review and approve the medication order if appropriate. Requested Prescriptions Pending Prescriptions Disp Refills Zolmitriptan 5 MG TABLET DISPERSIBLE [Pharmacy Med Name: ZOLMITRIPTAN 5MG ODT TABLETS] 10 Tablet 1 Sig: DISSOLVE 1 TABLET IN MOUTH NEEDED FOR MIGRAINE Not Delegated - Serotonin Agonists (Oral and Nasal) Protocol Failed - 10/08/2021 1:05 PM Failed - This refill cannot be delegated; check utilization no more than 9 doses per month Passed - Visit with relevant provider in past 24 months or upcoming 90 days Recent Visits Date Type Provider Dept 08/25/21 Office Visit Irlanda Maharaj MD [facility] 07/07/21 Office Visit Irlanda Maharaj MD [facility] 02/27/21 Office Visit Sanna Moncada APRN, KEITH [facility] Showing recent visits within past 730 days and meeting all other requirements Future Appointments No visits were found meeting these conditions. Showing future appointments within next 90 days and meeting all other requirements Passed - No documented Systolic BP > 200 within past 3 months Passed - Number of active Serotonergic medications less than 3 OLE TACKER documented in this encounter Plan of Treatment Upcoming Encounters Date Type Department Care Team (Late st Contact Info) Description 08/09/2026 8:00 AM OUTSOLE TACKER Office Visit [facility] - Primary Care - [place] [address] [place] [phone] Sanna Moncada APRN, KEITH [address] [place] [address] documented as of this encounter Visit Diagnoses Diagnosis Migraine without status migrainosus, not intractable, unspecified migraine type documented in this encounter Additional Health Concerns Infection Onset Date Last Indicated Resolved Time COVID - 19 03/04/2022 03/04/2022 03/24/2022 12:1 6 AM CDT COVID - 19 06/26/2023 06/26/2023 06/26/2023 8:26 AM CDT COVID - 11/20/2023 11/20/2023 11/30/2023 12:1 6 AM OUTSOLE TACKER Respiratory Rule-Out 11/20/2023 11/20/2023 024 8:43 AM OUTSOLE TACKER Assessment Noted Time PHQ-9 Depression Total Score: 0 02/28/20 8:00 AM CDT documented as of this encounter Care Teams Video Conference Specialist Relationship Specialty Start Date End Date Irlanda Maharaj MD PCP - General Family Medicine 08/15/15 11/23/22 Sanna Moncada, CASHIER TUBE ROOM, CARROTING MACHINE OPERATOR [address] [place] [address] PCP - General Advanced Practice Nurse 11/24/22 David Yanes MD [address] [place] [address] Senior Security Engineer Obstetrics & Gynecology 05/07/20 documented as of this encounter
--- OUTSIDE RECORDS SUMMARY | 2025-09-08 08:17 | XMS_ITS | Encounter Summary ---
Author Organization [facility] Address [address] [place] [address] Care Team Providers Care Food Service Technician Name Role Phone Irlanda Maharaj MD Unavailable [facility] Primary Care Pr ovider Reason for Visit * Reason Onset Date Comments Pain 06/28/2018 Bladder Instillation 06/28/2018 Question 06/28/2018 Encounter Details Date Type Department Care Team (Late st Contact Info) Description 06/28/2018 Telephone [facility] [address] [place] [address] David Yanes MD [address] [place], [place] [id number] Pain; Bladder Instillation; Question Social History Tobacco Use Types Packs/Day Years Used Date Smoking Tobacco: Never Smokeless Tobacco: Never Alcohol Use Standard Drinks/Week Comments No 0 (1 standard drink = 0.6 oz pur e alcohol) Comments No Sex and Gender Information Value Date Recorded Sex Assigned at Not on file Legal Sex Female 7:34 AM HARNESS FITTER Gender Identity Female Sexual Orientation Not on file documented as of this encounter Functional Status * Is person deaf or have serious hearing difficulty? Answer Date of Assessment Author No 09/05/2014 1:00 PM HARNESS FITTER Monica Figueroa RN * Is person blind or have serious difficulty seeing? Answer Date of Assessment Author No 09/05/2014 1:00 PM Monica Hirsch RN * Does person have serious [...] Telephone Encounter - Adams Zelaya RN - 07/26/2018 10:04 AM CDT She has been tracking her pain and feels it comes right before the start of her cycle and lasts 4-5days. Her burning pain has eased up now, but wants to discuss hormones. She went ahead and made appts for future instillations. Can discuss hormones at that time. * Telephone Encounter - Ciaran Telles - 07/26/2018 8:15 AM CDT Pt states that she will not be able to make the appointment for today. Pt would like to speak to a nurse. Cb: [phone] * Telephone Encounter - Darleen Reid - 07/25/2018 3:50 PM CDT Called pt to schedule her with Dr Yanes tomorrow at [facility] at 330. If she calls back we can get her scheduled * Telephone Encounter - Adams Zelaya RN - 07/22/2018 2:45 PM CDT LM on - Dr. Yanes is totally booked and no nurse available next week. Can put her on w/ Dr. Aaron at [facility] on Wednesday -or- Melva Welsh, PURCHASING OFFICER at [facility] on Wed or . * Telephone Encounter - Manny Gutiérrez - 07/22/2018 2:13 PM CDT Pt called wanting to know if she can be seen mike for a bladder instill. Pt can not wait until August. Pt denied appointment for 08/11 Callback#[phone] * Telephone Encounter - Adams Zelaya RN - 06/28/2018 11:58 AM CDT Just finished a 5 day course of macrobid from Urgent care and symptoms got better: urgency, frequency, whole bladder was on fire. Today is the first day she is functioning normally, but feels she is having a flare. She really could benefit from instillation today. She has a presentation tomorrow and would need to take a vicodin otherwise. Appt today at 345. She will bring a copy of the cx results. * Telephone Encounter - Ciaran Telles - 06/28/2018 8:24 AM CDT PT CALLED IN STATING THAT SHE TESTED POSITIVE FOR A INFECTION AND WAS TREATED BUT STILL HAS PAIN. PLEASE ADVISE CB: [phone] documented in this encounter Plan of Treatment Upcoming Encounters Date Type Department Care Team (Late st Contact Info) Description 12/03/2025 10:00 AM HARNESS FITTER Office Visit [facility] - Surgery [address], [address] [place] [address] Prudence Em, AREA SALES MANAGER-PROCESS DESCRIPTION WRITER [address] [place] [phone] 07/31/2026 4:00 PM CDT Office Visit [facility] - GREENSKEEPER [address] [place] [phone] Vandana Knight MD [address] [place] [address] documented as of this encounter Visit Diagnoses Not on filedocumented in this encounter Care Teams Food Service Technician Relationship Specialty Start Date End Date Irlanda Maharaj MD [address] [place] [address] PCP - Attributed-[employer] [place] 10/04/20 02/17/22 Sanna Moncada APRN-PROCESS DESCRIPTION WRITER [address] [place] [address] PCP - General Nurse Practitioner 08/15/25 documented as of this encounter
--- OUTSIDE RECORDS SUMMARY | 2025-09-08 08:17 | XMS_ITS | Encounter Summary ---
Author Organization [facility] Address [address] [place] [address] Phone Care Team Providers Care Boring Mill Set Up Operator Vertical Name Role Phone Irlanda Maharaj MD Primary Care Provider David Yanes MD Unavailable [phone] Sanna Moncada APRN, USER EXPERIENCE DESIGNER Primary Care P rovider Reason for Visit * Reason Comments Medication Refill Encounter Details Date Type Department Care Team (Late st Contact Info) Description 02/11/2022 Refill [facility] [address] [place] [id number] Irlanda Maharaj MD [address] [place] [address] Medication Refill Social History Tobacco [...] on file Sexual Orientation Not on file documented as of this encounter Miscellaneous Notes * Telephone Encounter - Ruth Ann Martin RN - 02/11/2022 10:02 AM CDT Zolmitriptan 5 MG TABLET DISPERSIBLE 10 Tablet 5 02/06/2022 Sig - Route: Take 1 Tablet by mouth as needed for Migraine. - Oral Refill too soon documented in this encounter Plan of Treatment Upcoming Encounters Date Type Department Care Team (Late st Contact Info) Description 08/09/2026 8:00 AM REGISTRATION MANAGER Office Visit [facility] - Primary Care - [place] [address] [place] [address] Sanna Moncada APRN, USER EXPERIENCE DESIGNER [address] [place] [address] documented as of this encounter Visit Diagnoses Diagnosis Migraine without status migrainosus, not intractable, unspecified migraine type documented in this encounter Additional Health Concerns Infection Onset Date Last Indicated Resolved Time COVID - 19 03/04/2022 03/04/2022 03/24/2022 12:1 6 AM CDT COVID - 19 06/26/2023 06/26/2023 06/26/2023 8:26 AM CDT COVID - 19 11/20/2023 11/20/2023 11/30/2023 12:1 6 AM REGISTRATION MANAGER Respiratory Rule-Out 11/20/2023 11/20/2023 024 8:43 AM REGISTRATION MANAGER Assessment Noted Time PHQ-9 Depression Total Score: 0 02/28/20 21 8:00 AM CDT documented as of this encounter Care Teams Boring Mill Set Up Operator Vertical Relationship Specialty Start Date End Date Irlanda Maharaj MD PCP - General Family Medicine 08/15/15 11/23/22 Sanna Moncada APRN, USER EXPERIENCE DESIGNER [address] [place] [address] PCP - General Advanced Practice Nurse 11/24/22 David Yanes MD [address] [place] [address] Buttonhole Machine Operator Obstetrics & Gynecology 05/07/20 documented as of this encounter
--- OUTSIDE RECORDS SUMMARY | 2025-09-08 08:17 | XMS_ITS | Encounter Summary ---
Author Organization [facility] Address [address] [facility] [place] [address] Care Team Providers Care Ux Engineer Name Role Phone JohnnicoleyonasbangDerrick WATER POLLUTION CONTROL TECHNICIAN-KNOTTING MACHINE OPERATOR PORTABLE Primary Care Pr ovider Reason for Visit * Reason Onset Date Comments Returned Call 01/28/2023 Encounter Details Date Type Department Care Team (Late st Contact Info) Description 01/28/2023 Telephone [facility] [address] [place] [address] David Yanes MD [address] [place] [address] Returned Call Social History Tobacco Use Types Packs/Day Years Used Date Smoking Tobacco: Never Smokeless Tobacco: Never Alcohol Use Standard Drinks/Week Comments No 0 (1 standard drink = 0.6 oz pur e alcohol) Comments No Sex and Gender Information Value Date Recorded Sex Assigned at Not on file Legal Sex Female 7:34 AM SALVAGE GRINDER Gender Identity Female Sexual Orientation Not on [...] Telephone Encounter - Adams Zelaya RN - 01/28/2023 3:53 PM CDT Derrick still having IC flare. She requests instill. Hoping to get on top of her bladder pain and another instill will really help. Can't get out of work until noon. Cannot make morning appointments suggested. PLAN: will see at [address] Chatman's schedule. Nurse will do. She is grateful. * Telephone Encounter - Adams Zelaya RN - 01/28/2023 11:13 AM CDT LM on a re: Can schedule an instill appt: - tomorrow w/ Dr Yanes at [facility] office: 01/29 at 1145 - Wednesday, on nurse schedule at [place] office: February 02, at 1030 or 1050. Pls call back and let us know if either will work for you. * Telephone Encounter - Linh Ashley - 01/28/2023 10:22 AM CDT PT returning missed phone call [phone] documented in this encounter Plan of Treatment Upcoming Encounters Date Type Department Care Team (Late st Contact Info) Description 12/03/2025 10:00 AM SALVAGE GRINDER Office Visit [facility] - Surgery [address], [address] [place] [phone] Prudence Em APRN-KNOTTING MACHINE OPERATOR PORTABLE [address] [facility] [address] [place] [address] 07/31/2026 4:00 PM CDT Office Visit [facility] - BROKERAGE BRANCH MANAGER [address] [facility] [address] [place] [address] Vandana Knight MD [address] [facility] [address] [place] [address] documented as of this encounter Visit Diagnoses Not on filedocumented in this encounter Care Teams Ux Engineer Relationship Specialty Start Date End Date Derrick Moncada, WATER POLLUTION CONTROL TECHNICIAN-KNOTTING MACHINE OPERATOR PORTABLE [address] [place] [address] PCP - General Nurse Practitioner 08/15/25 documented as of this encounter
--- OUTSIDE RECORDS SUMMARY | 2025-09-08 08:17 | XMS_ITS | Encounter Summary ---
Author Organization [facility] Address [address] [place] [address] Phone Care Team Providers Care Tool And Die Maker/Designer Name Role Phone David Yanes MD Unavailable Sanna Moncada APRN, CNP Primary Care P rovider Encounter Details Date Type Department Care Team (Late st Contact Info) Description 07/09/2025 Results Follow-Up [facility] - [facility] - [place] [address] [place] [address] Maria A Bowers APRN, CNP [address] [place] [address] POCT UA AUTOMATED W/O MICRO, CULTURE, URINE Social History Tobacco Use Types Packs/Day Years Used Date Smoking Tobacco: Never Smokeless Tobacco: Never Alcohol Use Standard Drinks/Week Comments No 0 (1 standard drink = 0.6 oz pur e alcohol) PHQ-2 Answer Date Recorded Total Score - Questions 1-9 0 07/06 Education Answer Date Recorded What is the [...] on file documented as of this encounter Plan of Treatment Upcoming Encounters Date Type Department Care Team (Late st Contact Info) Description 08/09/2026 8:00 AM ENVELOPE ADJUSTER Office Visit [facility] - Primary Care - [place] [address] [place] [address] Sanna Moncada APRN, HELIX COIL WINDER [address] [place] [address] documented as of this encounter Visit Diagnoses Not on filedocumented in this encounter Additional Health Concerns Assessment Noted Time PHQ-9 Depression Total Score: 0 08/03/20 24 8:23 AM CDT documented as of this encounter Care Teams Tool And Die Maker/Designer Relationship Specialty Start Date End Date Sanna Moncada APRN, HELIX COIL WINDER [address] [place] [address] PCP - General Advanced Practice Nurse 11/24/22 David Yanes MD [address] [place] [address] Pole Cutter Obstetrics & Gynecology 05/07/20 documented as of this encounter
--- OUTSIDE RECORDS SUMMARY | 2025-09-08 08:17 | XMS_ITS | Encounter Summary ---
Author Organization [facility] Address [address] [facility] [place] [address] Care Team Providers Care Director Of Clinical Services Name Role Phone JohnnicoleDerrick rodriguez FIELD SERVICER-AGENT BROKER Primary Care Pr ovider Reason for Visit * Reason Onset Date Comments Results 08/15/2025 Encounter Details Date Type Department Care Team (Late st Contact Info) Description 08/15/2025 Telephone [facility] - VETERANS' COORDINATOR [address] [facility] [address] [place] [address] Vandana Knight MD [address] [facility] [address] [place] [address] Results Social History Tobacco Use Types Packs/Day Years Used Date Smoking Tobacco: Never Passive Smoke Exposure: Never Smokeless Tobacco: Never Alcohol Use Standard Drinks/Week Comments No 0 (1 standard drink = 0.6 oz pur e alcohol) PHQ-2 Answer Date Recorded Patient Health Questionnaire-2 Score 0 04/09/2025 Comments No Sex and Gender Information Value Date Recorded Sex Assigned at Not on file Legal Sex Female 7:34 AM CABLE TOWER OPERATOR Gender Identity Female Sexual Orientation Not on file documented as of this encounter Functional Status * Is person deaf or have serious hearing difficulty? Answer Date of Assessment Author No 01/05/2025 1:44 PM Mary Kiran RN * Is person blind or have serious difficulty seeing? Answer Date of Assessment Author No 01/05/2025 1:44 PM CDT Mary Brown RN * Does person have serious difficulty walking/climbing stairs? Answer Date of Assessment Author No 01/05/2025 1:44 PM CDT Mary Brown RN * Does person have difficulty dressing/bathing? Answer Date of Assessment Author No 01/05/2025 1:44 PM CDT Mary Brown RN * Does person have difficulty doing errands alone? Answer Date of Assessment Author No 01/05/2025 1:44 PM CDT Mary Brown RN documented as of this encounter Mental Status * Does person have difficulty concentrating/remembering/making decisions? Answer Entry Date Author No 01/05/2025 1:44 PM Mary Kiran RN documented in this encounter Miscellaneous Notes * Telephone Encounter - Claudia Beach RN - 08/15/2025 1:39 PM CST Pt aware of MD note. She would like to have supplemental screening ordered. She will check with insurance. E TOWER OPERATOR * Telephone Encounter - Vandana Knight MD - 08/15/2025 12:56 PM CABLE TOWER OPERATOR Please advise that her mammogram results look good. Since the breasts are extremely dense(this is acommon finding) it does make it harder for the radiologist to see small changes/cancer. Because of this an additional screening test is an option. Can do a screening breast ultrasound or breast MRI. One of the issues with this may be insurance as they do not have to cover a supplemental test. Some do but she would have to check on coverage with her insurance. I am happy to order something if she wants. Vandana Knight MD E TOWER OPERATOR * Telephone Encounter - Claudia Beach RN - 08/15/2025 12:14 PM CST Pt calling because she cannot log into her [employer] account. Asks what her mammogram results are? RNread mammogram result to pt. Aware Dr. Knight has not yet reviewed as it was only released this morning. Pt states she did mention to [facility] that many women in her family have to go back yearly forrepeat mammograms r/t dense breasts, so she is unsure if her statement regarding this is the reasoning for why consideration to referral to [facility] Surgery [facility] was recommended? She will wait for Dr. Knight to further review. Asks for staff to call her back for followup recommendations as her [employer] is not working. E TOWER OPERATOR * Telephone Encounter - Carol Mercado - 08/15/2025 11:45 AM CST Patient calling in for her results Cb [phone] E TOWER OPERATOR documented in this encounter Plan of Treatment Upcoming Encounters Date Type Department Care Team (Late st Contact Info) Description 12/03/2025 10:00 AM CABLE TOWER OPERATOR Office Visit [facility] - Surgery [address], [facility] [address] [place] [address] Prudence Em, FIELD SERVICER-AGENT BROKER [address] [facility] [address] [place] [address] 07/31/2026 4:00 PM CDT Office Visit [facility] Group - VETERANS' COORDINATOR [address] [facility] [address] [place] [address] Vandana Knight MD [address] [facility] [address] [place] [address] documented as of this encounter Goals Goal Patient Goal Type Associated Problems Recent Progress Patient-Stated? Author Medication Management General No Hilda David, RN Note: Expected end date: Ongoing Interventions: Take all medications as prescribed Let your doctor know right away about any changes in your medications Make sure to request a refill of your medication at least one week prior to your last dose documented as of this encounter Visit Diagnoses Not on filedocumented in this encounter Care Teams Director Of Clinical Services Relationship Specialty Start Date End Date Derrick Moncada, NATHALY-AGENT BROKER [address] [place] [address] PCP - General Nurse Practitioner 08/15/25 documented as of this encounter
--- OUTSIDE RECORDS SUMMARY | 2025-09-08 08:17 | XMS_ITS | Encounter Summary ---
Author Organization [facility] Address [address] [place] [address] Phone Care Team Providers Care Director Religious Education Name Role Phone Irlanda Maharaj MD Primary Care Provider David Yanes MD Unavailable [phone] Sanna Moncada APRN, SPRAY DYER Primary Care P rovider Reason for Visit * Reason Comments Medication Refill Encounter Details Date Type Department Care Team (Late st Contact Info) Description 01/11/2022 Refill [facility] - Primary Care - [place] [address] [place] [address] Irlanda Maharaj MD [address] [place] [address] Medication Refill Social History Tobacco [...] encounter Miscellaneous Notes * Telephone Encounter - Uyen Christine RN - 01/12/2022 10:12 AM CDT Refill request too soon. documented in this encounter Plan of Treatment Upcoming Encounters Date Type Department Care Team (Late st Contact Info) Description 08/09/2026 8:00 AM CUTTING INSPECTOR [facility] - [place] [address] [place] [address] Sanna Moncada APRN, SPRAY DYER [address] [place] [address] documented as of this encounter Visit Diagnoses Diagnosis Irritable bowel syndrome with constipation Irritable bowel syndrome documented in this encounter Additional Health Concerns Infection Onset Date Last Indicated Resolved Time COVID - 19 03/04/2022 03/04/2022 03/24/2022 12:1 6 AM CDT COVID - 19 06/26/2023 06/26/2023 06/26/2023 8:26 AM CDT COVID - 19 11/20/2023 11/20/2023 11/30/2023 12:1 6 AM CUTTING INSPECTOR Respiratory Rule-Out 11/20/2023 11/20/2023 024 8:43 AM CUTTING INSPECTOR Assessment Noted Time PHQ-9 Depression Total Score: 0 02/28/20 8:00 AM CDT documented as of this encounter Care Teams Director Religious Education Relationship Specialty Start Date End Date Irlanda Maharaj MD PCP - General Family Medicine 08/15/15 11/23/22 Sanna Moncada APRN, SPRAY DYER [address] [place] [address] PCP - General Advanced Practice Nurse 11/24/22 David Yanes MD [address] [place] [address] Aquatic Performer Obstetrics & Gynecology 05/07/20 documented as of this encounter
[2025-09-08 08:20] VITALS: BP 105/68; PULSE 62; RESP 16; TEMP 36.6; O2SAT 100
--- NOTE | 2025-09-08 08:35 | ED.URI ---
HPI - URI/Sore Throat General Chief Complaint: Upper Respiratory Infection Stated Complaint: Cough Time Seen by Provider: 09/08/25 08:35 Source: patient Mode of arrival: ambulatory Limitations: no limitations History of Present Illness HPI Narrative: 45-year-old female presents with complaint of 8 days of sinus congestion, postnasal drainage, coughing. Cough was nonproductive until 2 days ago, started coughing up green sputum. reveals restriction in chest when breathing this morning. History of asthma. Afebrile. has tried NyQuil with no relief of symptoms. All systems reviewed and negative except as noted above. Related Data Home Medications ?Medication ?Instructions ?Recorded ?Confirmed ?Last Taken ?Type plecanatide 3 mg tablet (Trulance) mg 09/08/25 Unknown History Allergies Allergy/AdvReac Type Severity Reaction Status Date / Time sulfamethoxazole Allergy Mild Hives / Verified 09/19/17 12:09 Red Face trimethoprim Allergy Mild Hives / Verified 09/19/17 12:09 Red Face lidocaine AdvReac Unknown LAI Verified 09/19/17 12:09 SKIN PMFSH Comments At time of signature, agree with nursing past medical, surgical, social and family history. There is no relevant family history pertinent to the presenting complaint. Exam Narrative: GENERAL: This is a well-nourished, well-developed patient, in no apparent distress. HEAD: normocephalic, atraumatic. EYES: PERRL. Sclera clear/white. Vision is grossly intact. EARS: External ears normal, auditory canals clear and without drainage, TMs normal without perforation. Hearing grossly intact. NOSE: External nose normal with no obvious nasal discharge, nares without redness, no rhinorrhea. THROAT: Mucous membranes moist, Erythema postnasal drainage NECK: Neck supple, non-tender without lymphadenopathy, masses or thyromegaly. CARDIOVASCULAR: Regular rate and rhythm without murmurs, gallops, or rubs. RESPIRATORY: mild decreased to bilateral lower lung romero otherwise clear. Breath sounds equal bilaterally. No wheezes, rales, or rhonchi. SKIN: warm, Dry, intact with no suspicious lesions or rash, good texture and turgor. NEURO: awake, alert, and oriented to person, place and time. There were no obvious focal neurologic abnormalities. EXTREMITIES: No joint tenderness, effusion, or edema noted. Course Course Level of Care: Express Care Visit Vital Signs Vital signs: Vital Signs Temperature 36.6 C 09/08/25 08:20 Pulse Rate 62 09/08/25 08:20 Respiratory Rate 16 09/08/25 08:20 Blood Pressure 105/68 09/08/25 08:20 Pulse Oximetry 100 09/08/25 08:20 Oxygen Delivery Room Air 09/08/25 08:20 Temperature 36.6 C 09/08/25 08:20 Pulse Rate 62 09/08/25 08:20 Respiratory Rate 16 09/08/25 08:20 Blood Pressure 105/68 09/08/25 08:20 Pulse Oximetry 100 09/08/25 08:20 Oxygen Delivery Room Air 09/08/25 08:20 Reviewed MDM MDM Narrative Medical decision making narrative: will treat for acute bronchitis due to Exam findings and duration of symptoms. Patient agrees with plan of care. No respiratory distress. Differential Diagnosis Differential Diagnosis: Differential diagnostic considerations for upper respiratory infection include upper respiratory infection, croup, otitis media, sinusitis, viral infection, bronchitis, influenza, pharyngitis, strep, uvulitis.? Discharge Plan Discharge Clinical Impression: Acute bronchitis Patient Disposition: Home Condition: Stable Instructions: Antibiotic Form, Acute Bronchitis (ED) Additional Instructions: take medications as prescribed. Drink at least 64 oz of water a day. Place cool mist humidifier in bedroom where you sleep. Follow-up with your primary care physician if not improving. Patient Language: Hungarian Prescriptions: New doxycycline hyclate 100 mg capsule 100 mg PO BID 7 Days Qty: 14 0RF benzonatate 200 mg capsule 200 mg PO TID PRN (Reason: cough) Qty: 20 0RF methylprednisolone [Medrol (Nader)] 4 mg tablets,dose pack See Rx Instructions PO .COMPLEX Qty: 21 0RF Rx Instructions: orally per package directions No Action Trulance 3 mg tablet Follow-up/Referrals: PHYSICIAN NOT ON STAFF,NONSTAFF [Primary Care Provider] Time of Disposition: 08:40
== END 2025-09-08 08:42 | disposition home or self-care (01) ==
PROVIDERS: Emergency Provider Nurse Practitioner Family
DX: J20.9 Acute bronchitis, unspecified (principal); J45.909 Unspecified asthma, uncomplicated
CPT/HCPCS: 99203; G0463